=== PATIENT | female | born 2000 | race Two or more races ===

== ENCOUNTER 2025-06-22 15:43 | Emergency (ER) | payer BC, SELFPAY ==
[2025-06-22 15:43] VITALS: BMI 33.6
[2025-06-22 16:08] VITALS: BP 122/79; PULSE 96; RESP 18; TEMP 37.1; O2SAT 97
--- NOTE | 2025-06-22 16:18 | EKG_ITS ---
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
--- NOTE | 2025-06-22 16:18 | XR_ITS ---
Examination: PA lateral chest 2 views Technique: Upright PA lateral chest 2 views Date and time: June 22, 2025, 1632 hrs. Indications: Chest pain shortness of breath numbness in the left shoulder beginning 2 days ago. Findings: Normal heart size Minor atelectasis left lower lobe No lobar pneumonia or pulmonary edema The osseous structures are intact Impression: Minor subsegmental atelectasis left lower lobe No lobar pneumonia or pulmonary edema.
--- NOTE | 2025-06-22 16:20 | PD.EDRME ---
Rapid Medical Screening Exam RME Arrival date/time: 06/22/25 15:43 24-year-old female presents the emergency room due to complaint of chest pain and shortness of breath Chief Complaint: Chest Pain Vital signs: Vital Signs Temperature 98.8 F 06/22/25 16:08 Pulse Rate 96 06/22/25 16:08 Respiratory Rate 18 06/22/25 16:08 Blood Pressure 122/79 06/22/25 16:08 Pulse Oximetry (%) 97 06/22/25 16:08 Oxygen Delivery Method Room Air 06/22/25 16:08
[2025-06-22 16:52] LABS: Basophils # (Auto) 0.0 Thou/mm3 (0.0-0.2); Basophils % (Auto) 0 % (0-2.5); Eosinophils # (Auto) 0.1 Thou/mm3 (0.0-0.5); Eosinophils % (Auto) 1 % (0-10); Hematocrit 39.0 % (36.0-46.0); Hemoglobin 12.5 g/dL (12.0-16.0); Immature Granulocytes Auto 0.02 Thou/mm3 (0.00-0.00); Lymphocytes # (Auto) 2.1 Thou/mm3 (1.0-4.8); Lymphocytes % (Auto) 20 % (10-50); Mean Corpuscular HGB Conc 32.1 g/dl (31.0-37.0); Mean Corpuscular Hemoglobin 26.8 pg (25.0-35.0); Mean Corpuscular Volume 84 fL (80-100); Monocytes # (Auto) 0.6 Thou/mm3 (0.0-0.8); Monocytes % (Auto) 6 % (0-12); Neutrophils # (Auto) 7.4 Thou/mm3 (1.8-7.7); Neutrophils % (Auto) 73 % (37-80); Nucleated Red Blood Cell # 0.00 Thou/mm3 (0.00-0.00); Nucleated Red Blood Cell % 0 /100 WBC (0); Platelet Count 429 Thou/mm3 (140-440); RDW Standard Deviation 39.3 fL (36.4-46.3); Red Blood Count 4.67 Miln/mm3 (4.00-5.20); White Blood Count 10.3 Thou/mm3 (3.6-11.0)
[2025-06-22 17:07] LABS: Alanine Aminotransferase 27 U/L (10-49); Albumin, Serum 4.6 gm/dL (3.5-5.0); Albumin/Globulin Ratio 1.6 (1.2-2.2); Alkaline Phosphatase 100 U/L (46-116); Anion Gap 11 (7-16); Aspartate Amino Transferase 27 U/L (0-34); BUN/Creatinine Ratio 9 Ratio (12-20); Bilirubin,Total 0.4 mg/dL (0.3-1.2); Blood Urea Nitrogen 6 mg/dL (9-23); Calcium 9.2 mg/dL (8.3-10.6); Calcium (Corrected) 9.2 mg/dL (8.5-10.1); Carbon Dioxide 26.3 mMol/L (20.0-31.0); Chloride 107 mMol/L (98-107); Creatinine (Component) 0.7 mg/dL (0.6-1.3); Estimated Creatinine Clearance 128.9 mL/min (>60); Globulin 2.9 gm/dL (2.3-3.5); Glucose 138 mg/dL (74-106); Osmolality,Calculated 286 (275-295); Potassium 3.8 mMol/L (3.4-5.1); Sodium 144 mMol/L (136-145); Total Protein 7.5 gm/dL (5.7-8.2); Troponin I < 0.002 ng/mL (0.0-0.045); eGFR > 60 See Note
[2025-06-22 17:10] LABS: D-Dimer 366 ng/mL (<600)
[2025-06-22 17:11] LABS: HCG,Qualitative Serum Negative
--- NOTE | 2025-06-22 18:18 | EDNOTE_ITS ---
ED Chest Pain RME/HPI General Chief Complaint: Chest Pain Stated Complaint: SOB/CHEST PAIN Time Seen by Provider: 06/22/25 16:54 Arrival date/time: 06/22/25 15:43 Limitations: no limitations RME / HPI RME / HPI narrative: 06/22/25 15:43 24-year-old female presents the emergency room due to complaint of chest pain and shortness of breath Dr. Carlos'junior Main ED Evaluation: 24yo female with no significant past medical history presents to the ED for a chief complaint of chest pain x yesterday. Patient states her pain initially started as left shoulder pain, but reports it migrated to the left side of her chest. Her pain worsens when sitting in certain positions and when she takes a deep breathe. Patient reports associated shortness of breath. She took Tylenol without i mprovement. Denies any cough, fever, chills, or any other associated symptoms. NKA. Related Data Home Medications ?Medication ?Instructions ?Recorded ?Confirmed prenat.vits,iliana,bzj-ulqd-zkups 1 tab PO QDAY 03/12/23 03/12/23 Previous Rx's ?Medication ?Instructions ?Recorded docusate sodium 100 mg capsule 100 mg PO BID #60 caps 03/14/23 (Colace) ferrous sulfate 325 mg (65 mg 325 mg PO QDAY #30 tabs 03/14/23 iron) tablet ibuprofen 600 mg tablet 600 mg PO Q6H PRN pain #30 t abs 03/14/23 lanolin 50 % topical ointment 1 applic topical TID PRN skin 03/14/23 irritation #15 tubes Allergies Allergy/AdvReac Type Severity Reaction Status Date / Time No Known Allergies Allergy Verified 06/22/25 15:46 Review of Systems Review of Systems Systems Reviewed: All systems reviewed, normal except as documented Past Medical History Past Medical History NEUROLOGIC: Negative Neurological Disorders CARDIAC: Negative Cardiac Disorders or Congestive Heart Failure RESPIRATORY: Negative Chronic Obstructive Pulmonary Disease (COPD) or Asthma GASTROINTESTINAL: Negative Gastrointestinal Disorders GENITOURINARY: Negative Genitourinary Disorders or Renal Disease REPRODUCTIVE: Negative Pelvic Inflammatory Disease MUSCULOSKELETAL: Negative Musculoskeletal Disorders or Scoliosis ENDOCRINE: Positive Endocrine Disorders; Negative Diabetes Mellitus Type 1 or Diabetes Mellitus Type 2 HEMATOLOGIC: Negative Blood Disorders PSYCHO/SOCIAL: Negative Depression or Anxiety OTHER HISTORY: Negative Blood Transfusions or Anesthesia Reactions Family History FAMILY HISTORY: Negative Family Psychiatric Problems, Family Respiratory Disorders, Family Cardiac Disorders, Family Gastrointestinal Problems, Family Cancer or Family Anesthesia Reaction Surgical History SURGICAL: Negative Section Social History SMOKING STATUS: Never smoker ED Exam General Limitations: Present no limitations General appearance: Present alert and in no apparent distress Head Head exam: Present atraumatic Eye Eye exam: Present normal appearance, PERRL and EOMI ENT ENT exam: Present normal exam, normal oropharynx and mucous membranes moist Neck Neck exam: Present normal inspection, full ROM and trachea midline Chest Chest inspection: Present normal inspection and symmetric chest wall rise Respiratory Respiratory exam: Present normal lung sounds bilaterally Cardiovascular Cardiovascular exam: Present regular rate, normal rhythm and normal heart sounds Abdominal Exam Abdominal exam: Present soft and normal bowel sounds Extremities Exam Extremities exam: Present normal inspection and full ROM Back Exam Back exam: Present normal inspection and full ROM Neurological Exam Neurological exam: Present alert, oriented X3 and CN II-XII intact Psychiatric Psychiatric exam: Present normal affect and normal mood Skin Skin exam: Present warm, dry, intact and normal color Course Course Course Narrative: CXR is ordered for determining the etiology of chest pain. Quality Measures none Orders Category Date Time Status EKG (ED ONLY) *Do not use* NOW Care 06/22/25 16:18 Completed EKG (ED Only) Stat Exams 06/22/25 16:18 Draft XR chest 2V Stat Exams 06/22/25 16:18 Completed CBC Stat Lab 06/22/25 16:40 Completed Comprehensive Metabolic Panel Stat Lab 06/22/25 16:40 Completed D-Dimer Stat Lab 06/22/25 16:40 Completed HCG,Qualitative Serum Stat Lab 06/22/25 16:40 Completed Troponin I Stat Lab 06/22/25 16:40 Completed Ketorolac Inj [Toradol Inj] Med 06/22/25 18:20 Discontinued 30 mg IM X1 ONE Vital Signs Vital signs: Vital Signs Temperature 98.8 F 06/22/25 16:08 Pulse Rate 96 06/22/25 16:08 Respiratory Rate 18 06/22/25 16:08 Blood Pressure 122/79 06/22/25 16:08 Pulse Oximetry (%) 97 06/22/25 16:08 Oxygen Delivery Method Room Air 06/22/25 16:08 Chest Pain MDM Narrative MDM Narrative:: Scribe Attestation: 06/22/25 Vivian Blankenship am scribing for and in the presence of Dr. Carlos. Patient data External records reviewed:: [facility] previous records (Per chart review, patient has no previous ED visits or admissions to this facility.) Clinical information provided by:: patient Social determinants that could affect healthcare access:: none Patient has the following chronic illnesses:: none How is presenting disease/condition affected by chronic disease/condition?: no chronic disease Evaluation data The following diagnostics were reviewed and interpreted by me:: lab results, radiology exam(s) and EKG tracing(s) Lab and/or radiology exams considered but not ordered:: none Interpretation Summary: CBC normal, CMP normal, Troponin normal, HCG negative. EKG done at 1622, NSR, rate of 98, normal intervals, normal axis, no acute ST or T-wave changes, no STEMI, according to my interpretation. [facility] Report Signed Patient: LALI CHRISTIAN Record#: [id number] Birthdate: 2000 Age/Sex: 24 / F Location: [facility] Attending Dr: Ordering Physician: Iban (ALEAH)Mikel NP Date of Service: 06/22/25 Procedure(s): XR chest 2V Accession Number(s): [id number] cc: Iban TIRADO),Mikel BULLARD; Apolinar Smith MD; NO PRIMARY/FAMILY,PHYSICIAN~ Examination: PA lateral chest 2 views Technique: Upright PA lateral chest 2 views Date and time: June 22, 2025, 1632 hrs. Indications: Chest pain shortness of breath numbness in the left shoulder beginning 2 days ago. Findings: Normal heart size Minor atelectasis left lower lobe No lobar pneumonia or pulmonary edema The osseous structures are intact Impression: Minor subsegmental atelectasis left lower lobe No lobar pneumonia or pulmonary edema. Dictated By: Apolinar Smith MD Signed By: <Electronically signed by Apolinar Smith MD in OV> 06/22/25 7771 Medications / Prescriptions Medications or Prescriptions considered but not ordered:: none Medication administrations:: Medication Administration History Discontinued Medications Ketorolac Tromethamine (Ketorolac Inj 60 Mg/2 Ml Vial) 30 mg IM X1 ONE Stop: 06/22/25 18:21 see above Consultations Consultation(s) initiated? (list below): No Diagnosis Chest Pain Differential Diagnosis: atypical chest pain, st elevation myocardial infarction, costochondritis, chest pain and other (NSTEMI) Most likely diagnosis given after review of the tests above:: atypical chest pain Admission Indicated Admission indicated?: not indicated Admission Request Was there a request for admission?: No Disposition Plan Disposition Plan: Discharge Discharge Attestation Discharge Attestation: The patient and all family members were given an opportunity to ask questions and understood the discharge instructions. Discharge instructions specifically effects, indications for sooner follow up or return to the emergency department, and the expected course of current diagnosis. Patient condition: Stable Discharge Plan Plan Patient Disposition: HOME (Self Care) Prescriptions/Referrals Prescriptions/Med Rec: No Action prenat.vits,iliana,ucq-[id number]-onzre Tablet 1 tab PO QDAY ibuprofen 600 mg tablet 600 mg PO Q6H PRN (Reason: pain) Qty: 30 0RF ferrous sulfate 325 mg (65 mg iron) tablet 325 mg PO QDAY Qty: 30 1RF docusate sodium [Colace] 100 mg capsule 100 mg PO BID Qty: 60 0RF lanolin 50 % ointment 1 applic topical TID PRN (Reason: skin irritation) Qty: 15 0RF Referrals: [facility] [Outside] - In 1 week Problem List Clinical Impression: Atypical chest pain Patient/Caregiver Discharge Instructions Education Materials: ED Chest Pain, Uncertain Cause Additional Instructions: Take Motrin and Tylenol as needed for pain. Follow-up with your PCP in the next 2-3 days. Return to the ED for any worsening symptoms or as needed. Print Language: Vietnamese Stand Alone Forms: [employer]ione Award Info., Work/School Release, Patient Portal Info Letter
[2025-06-22] MEDS: KETOROLAC INJ 60 MG/2 ML VIAL 30 MG IM (18:52)
== END 2025-06-22 18:58 | disposition home or self-care (01) ==
PROVIDERS: Nurse Practitioner Primary Care; Emergency Provider Emergency Medicine
DX: J98.11 Atelectasis (principal)
CPT/HCPCS: 36415; 71046; 80053; 84484; 84703; 85025; 85379; 93005; 96372; 99283; J1885